=== PATIENT | female | born 1975 | race Caucasian/White ===

== ENCOUNTER 2020-08-11 02:04 | Emergency (ER) | payer BC, SELFPAY ==
--- NOTE | 2020-08-11 01:59 | ECG_ITS ---
APPROVED REPORT Exam: Resting ECG HR:79 bpm ECG Measurements Heart Rate 79 AXES VA 154 P 70 QRSd 84 QRS 62 QT 390 T 44 QTc 447 Conclusion Normal sinus rhythm Possible Left atrial enlargement Nonspecific ST abnormality Abnormal ECG Electronically signed by : Elvis Gil, 08/11/2020 06:56:08
[2020-08-11 02:05] VITALS: BP 161/99; PULSE 73; RESP 16; TEMP 36.9; O2SAT 98; BMI 25.0
--- NOTE | 2020-08-11 02:17 | XR_ITS ---
PROCEDURE: XR CHEST 2V CLINICAL HISTORY: chest pain COMPARISON: No exams were available for comparison FINDINGS: The cardiomediastinal silhouette and pulmonary vascularity are within normal limits. Nodular density overlying both upper lobes medially which may be due to costochondral hypertrophy and may be confirmed with follow-up. No lobar consolidation or collapse. No acute bony abnormalities. IMPRESSION: As above, no acute finding Dictated by: Dick Gardner MD 08/11/2020 05:30 Dick Gardner MD in [facility] 08/11/2020 05:30
[2020-08-11 02:25] LABS: Basophils % 0.5 % (0.1-2.0); Eosinophils # 0.1 K/mm3 (0.0-0.4); Eosinophils % 1.8 % (0.1-12.0); Hematocrit 44.2 % (37.0-47.0); Hemoglobin 14.7 g/dL (12.2-16.2); Lymphocytes # 1.6 K/mm3 (0.7-4.5); Lymphocytes % 32.5 % (10-50); Mean Corpuscular HGB Conc 33.3 g/dL (31.8-35.4); Mean Corpuscular Hemoglobin 29.4 pg (27.0-31.2); Mean Corpuscular Volume 88.3 fl (81-99); Mean Platelet Volume 8.4 fl (7.4-10.4); Monocytes # 0.5 K/mm3 (0.1-1.0); Monocytes % 9.5 % (1.7-9.3); Neutrophils # 2.8 K/mm3 (1.8-7.8); Neutrophils % 55.7 % (37.0-80.0); Platelet Count 226 K/mm3 (142-424); Red Cell Distribution Width 13.3 % (11.5-17.5)
[2020-08-11 02:30] LABS: Chloride 103 mmol/L (98-107)
[2020-08-11 02:31] LABS: Sodium 140 mmol/L (136-145)
[2020-08-11 02:33] LABS: Blood Urea Nitrogen 10 mg/dl (7-17); Creatinine Clearance Estimated 111 mL/min (50-200); Estimated Glomerular Filt Rate 91 ml/min (>60); GFR (African American) 111 ML/MIN (>60); Potassium 3.4 mmoL/L (3.5-5.1)
[2020-08-11 02:34] LABS: Anion Gap 10.4 mEq/L (5-15); Calcium 9.5 mg/dl (8.4-10.2); Carbon Dioxide 30 mmol/L (22.0-30.0); Glucose 113 mg/dl (74-100)
[2020-08-11 02:35] VITALS: BP 120/66; PULSE 72; RESP 15; O2SAT 99
--- NOTE | 2020-08-11 02:54 | CT_ITS ---
PROCEDURE: CT ANGIO CHEST CLINCIAL INDICATION: chest pressure Right-sided chest pain, recent Covid19 COMPARISON: No exams were available for comparison TECHNIQUE: IV Contrast: 70ML Isovue 370 Axial images obtained with sagittal and coronal reformats. All CT scans at the facility use one or more dose reduction, viz: automated exposure control, ma/kV adjustment per patient size (including targeted exams where dose is matched to indication, i.e. head), or iterative reconstruction technique. FINDINGS: HEART AND MEDIASTINAL STRUCTURES: No mediastinal or hilar mass. No evidence of aortic aneurysm or dissection. No pulmonary embolus LUNGS AND PLEURAL SPACES: Old granulomatous disease. Patchy ground-glass infiltrates are present in the right lower lobe posteriorly and to lesser degree in the left lower lobe and right middle lobe BONY STRUCTURES: No acute bony abnormalities apparent. UPPER ABDOMEN: Unremarkable. ADDITIONAL FINDINGS: No other significant abnormalities. IMPRESSION: 1. No evidence of pulmonary embolus. 2. Patchy infiltrate in the lung bases nonspecific but could be seen with Covid19 pneumonia Dictated by: Dick Gardner MD 08/11/2020 06:02 Dick Gardner MD in [facility] 08/11/2020 06:02
[2020-08-11 02:55] LABS: Microscopic, Urine URINE MICROSCOPIC (MICROSCOPIC)
--- NOTE | 2020-08-11 02:56 | [facility].EDCP ---
ED Disposition Clinical Impression: Atypical chest pain Disposition: Home, Self-Care Condition on Discharge: Good Instructions: DI for Atypical Chest Pain Additional Instructions: see pcp for asaf silva Referrals: Elvis Gil MD [Primary Care Provider] - - Critical Care Critical Care Time: No Attestation: On , the high probability of a clinically significant, sudden or life threatening deterioration of the following system(s) required my full and direct attention, intervention and personal management. The time I documented below is in addition to time spent performing reported procedures but includes the following listed in this critical care notation. Medical Decision Making - Medical Records Medical records reviewed: Yes: I reviewed the patient's medical records. - Dann Inquiry Pt receiving controlled substance: No Vital Signs: 08/11/20 02:05 08/11/20 02:35 Temperature 98.4 F Temperature Source Oral Pulse Rate [Left Radial] 73 72 Respiratory Rate 16 15 Blood Pressure [Right Arm] 161/99 H 120/66 Blood Pressure Mean [Right Arm] 119 84 Blood Pressure Source [Right Arm] Automatic Cuff Automatic Cuff Blood Pressure Position [Right Arm] Sitting Sitting 02 Sat by Pulse Oximetry 98 99 Oxygen Delivery Method Room Air Room Air - Lab Data Lab results reviewed: Yes: I reviewed the patient's lab results. Lab Results 08/11/20 02:05: WBC 5.0, RBC 5.00, Hgb 14.7, Hct 44.2, MCV 88.3, MCH 29.4, MCHC 33.3, RDW 13.3, Plt Count 226, MPV 8.4, Neut % (Auto) 55.7, Lymph % (Auto) 32.5, [place] % (Auto) 9.5 H, Eos % (Auto) 1.8, Baso % (Auto) 0.5, Neut # (Auto) 2.8, Lymph # (Auto) 1.6, [place] # (Auto) 0.5, Eos # (Auto) 0.1, Baso # (Auto) 0.0 08/11/20 02:05: Sodium 140, Potassium 3.4 L, Chloride 103, Carbon Dioxide 30, Anion Gap 10.4, BUN 10, Creatinine 0.70, Estimated Creat Clear 111, Estimated GFR 91, Est GFR ( Amer) 111, Glucose 113 H, Calcium 9.5, Troponin I < 0.01 08/11/20 02:07: ESR 23 H 01/12/21 02:07: Total Bilirubin 0.4, Direct Bilirubin 0.3, Conjugated Bilirubin 0.0, Indirect Bilirubin 0.1, Unconjugated Bilirubin 0.1, AST 32, ALT 15, Alkaline Phosphatase 70, C-Reactive Protein 0.9, Total Protein 7.6, Albumin 4.5, Procalcitonin 0.034 08/11/20 02:45: Urine Color Yellow, Urine Appearance Clear, Urine pH 6.0, Ur Specific [place] 1.025, Urine Protein Negative, Urine Glucose (UA) Negative, Urine Ketones Negative, Urine Blood 2+, Urine Nitrate Negative, Urine Bilirubin Negative, Urine Urobilinogen 0.2, Ur Leukocyte Esterase Negative, Urine RBC 5-10, Urine Bacteria 1+ 08/11/20 02:45: Urine HCG, Qual Negative Result diagrams: 08/11/20 02:05 08/11/20 02:05 Orders (Tests/Meds): ED MEDICATIONS Generic Name Dose Route Start Last Admin Trade Name Freq PRN Reason Stop Dose Admin Sodium Chloride 1,000 mls @ 999 mls/hr 08/11/20 02:30 08/11/20 02:28 Sod Chlor 0.9% 1000ml Bag IV 08/11/20 03:30 999 mls/hr .Q1H1M LAITH Administration Discontinued Medications Generic Name Dose Route Start Last Admin Trade Name Freq PRN Reason Stop Dose Admin Aspirin 324 mg 08/11/20 02:18 08/11/20 02:29 Aspirin 81mg Chewable Tablet PO 08/11/20 02:19 324 mg ONCE ONE Administration ORDERS Category Date Time Status CT Chest w/PE protocol [CT angio chest] Stat Cat Scan 08/11/20 02:54 Ordered XR chest 2V Stat Exams 08/11/20 02:17 Ordered Troponin I Q3H Lab 08/11/20 05:30 Ordered Troponin I Q3H Lab 08/11/20 08:30 Ordered - Radiology Data #1 Image(s): Chest Image Reviewed: Yes I reviewed the patient's radiology image Preliminary Findings: Normal/NAD - CT Data CT Scan: Chest Time Received: 03:[address] Reviewed: Yes: I have viewed the radiologist's interpretation Preliminary Findings: Normal/NAD - ECG Data Tracing #1 Normal Sinus Rhythm: Yes Ischemic changes: non-specific ST-T wave changes Chest Pain HPI - General Chief Complaint: Chest Pain Stated Complaint: Chest Pain Maximo
[2020-08-11 03:00] LABS: Appearance,Urine CLEAR (Clear); Bilirubin,Urine Negative (Negative); Blood, Urine 2+ (Negative); Color,Urine YELLOW (Yellow); Glucose,Urine (UA) Negative (Negative); Ketones,Urine Negative (Negative); Leukocyte Esterase,Urine Negative (Negative); Nitrate,Urine Negative (Negative); Protein,Urine Negative (Negative); Specific Gravity, Urine 1.025 (1.005-1.030); Urobilinogen,Urine 0.2 EU/dl (0.2)
[2020-08-11 03:02] LABS: Urine Pregnancy, HCG Qual. Negative (Negative)
[2020-08-11 03:07] LABS: Troponin I < 0.01 ng/ml (0.00-0.034)
[2020-08-11 03:11] LABS: Alanine Aminotransferase 15 U/L (12-78); Albumin Level 4.5 g/dl (3.5-5.0); Alkaline Phosphatase 70 U/L (38-126); Aspartate Amino Transferase 32 U/L (14-36); Bilirubin,Direct 0.3 mg/dl (0.0-0.4); Bilirubin,Indirect 0.1 mg/dL (0.0-0.9); Bilirubin,Total 0.4 mg/dl (0.2-1.3); Bilirubin,Unconjugated 0.1 mg/dL (0.0-1.1); Total Protein,Serum 7.6 g/dl (6.3-8.2)
[2020-08-11 03:13] LABS: Bacteria,Urine 1+ /lpf
[2020-08-11 03:16] LABS: C-Reactive Protein 0.9 mg/L (0-4)
[2020-08-11 03:30] LABS: Erythrocyte Sedimentation Rate 23 mm/hr (0-20); Procalcitonin 0.034 ng/mL (0.0-2.0)
--- NOTE | 2020-08-11 03:37 | PC.NURSE ---
pt back from RAD
[2020-08-11 03:40] VITALS: BP 138/64; PULSE 70; RESP 16; O2SAT 98
[2020-08-11 04:15] VITALS: BP 130/76; PULSE 71; RESP 16; TEMP 36.7; O2SAT 99
== END 2020-08-11 04:17 | disposition home or self-care (01) ==
PROVIDERS: Emergency Provider Emergency Medicine; PCP Internal Medicine Adolescent Medicine
DX: R07.89 Other chest pain (principal); Z86.16 Personal history of COVID-19
CPT/HCPCS: 71046; 71275; 80048; 80076; 81001; 81025; 84145; 84484; 85025; 85651; 86140; 93005; 96365; 96375; 99283; Q9967

== ENCOUNTER → 2023-03-27 23:18 | Outpatient (CLI) | payer BC, SELFPAY ==
[2023-03-27 16:51] LABS: Basophils % 0.5 % (0.1-2.0); Eosinophils # 0.1 K/mm3 (0.0-0.4); Eosinophils % 1.6 % (0.1-12.0); Hemoglobin 14.4 g/dL (12.2-16.2); Lymphocytes # 1.8 K/mm3 (0.7-4.5); Lymphocytes % 29.3 % (10-50); Mean Corpuscular HGB Conc 33.6 g/dL (31.8-35.4); Mean Corpuscular Hemoglobin 30.1 pg (27.0-31.2); Mean Corpuscular Volume 89.4 fl (81-99); Mean Platelet Volume 9.5 fl (7.4-10.4); Monocytes # 0.4 K/mm3 (0.1-1.0); Monocytes % 6.5 % (1.7-9.3); Neutrophils # 3.8 K/mm3 (1.8-7.8); Neutrophils % 62.2 % (37.0-80.0); Platelet Count 265 K/mm3 (142-424); Red Blood Count 4.81 M/mm3 (4.20-5.40); Red Cell Distribution Width 13.2 % (11.5-17.5); White Blood Count 6.1 K/mm3 (4.8-10.8)
[2023-03-27 16:53] LABS: Alanine Aminotransferase 17 U/L (12-78); Albumin Level 4.4 g/dl (3.5-5.0); Albumin/Globulin Ratio 1.6 (1.1-1.8); Alkaline Phosphatase 62 U/L (38-126); Anion Gap 15.8 mEq/L (5-15); Aspartate Amino Transferase 26 U/L (14-36); Bilirubin,Total 0.5 mg/dl (0.2-1.3); Blood Urea Nitrogen 14 mg/dl (7-17); Calcium 9.3 mg/dl (8.4-10.2); Carbon Dioxide 29 mmol/L (22.0-30.0); Chloride 104 mmol/L (98-107); Estimated Glomerular Filt Rate 67 ml/min (>60); GFR (African American) 82 ML/MIN (>60); Globulin 2.8 g/dL (1.3-3.2); Glucose 100 mg/dl (74-100); Potassium 4.8 mmoL/L (3.5-5.1); Sodium 144 mmol/L (136-145); Total Protein,Serum 7.2 g/dl (6.3-8.2)
[2023-03-27 17:24] LABS: Thyroid Stimulating Hormone 2.76 uIU/mL (0.465-4.68)
== END ==
PROVIDERS: PCP Nurse Practitioner Family; Visit Provider Nurse Practitioner Family
DX: R00.2 Palpitations (principal)
CPT/HCPCS: 80053; 84443; 85025; 85378

== ENCOUNTER 2023-09-01 22:11 | Outpatient (CLI) | payer BC, SELFPAY ==
[2023-09-01 16:05] LABS: Basophils % 0.8 % (0.1-2.0); Eosinophils # 0.1 K/mm3 (0.0-0.4); Hematocrit 43.8 % (37.0-47.0); Hemoglobin 14.8 g/dL (12.2-16.2); Lymphocytes # 1.4 K/mm3 (0.7-4.5); Lymphocytes % 27.8 % (10-50); Mean Corpuscular HGB Conc 33.7 g/dL (31.8-35.4); Mean Corpuscular Hemoglobin 30.6 pg (27.0-31.2); Mean Corpuscular Volume 90.7 fl (81-99); Mean Platelet Volume 9.2 fl (7.4-10.4); Monocytes # 0.4 K/mm3 (0.1-1.0); Neutrophils # 3.3 K/mm3 (1.8-7.8); Neutrophils % 63.4 % (37.0-80.0); Platelet Count 237 K/mm3 (142-424); Red Blood Count 4.83 M/mm3 (4.20-5.40); Red Cell Distribution Width 13.3 % (11.5-17.5); White Blood Count 5.2 K/mm3 (4.8-10.8)
[2023-09-01 16:14] LABS: Alanine Aminotransferase 21 U/L (12-78); Albumin Level 4.6 g/dl (3.5-5.0); Albumin/Globulin Ratio 1.9 (1.1-1.8); Alkaline Phosphatase 63 U/L (38-126); Aspartate Amino Transferase 29 U/L (14-36); Bilirubin,Total 0.7 mg/dl (0.2-1.3); Blood Urea Nitrogen 11 mg/dl (7-17); Calcium 9.8 mg/dl (8.4-10.2); Carbon Dioxide 29 mmol/L (22.0-30.0); Chloride 104 mmol/L (98-107); Cholesterol 241 mg/dl (140-200); Estimated Glomerular Filt Rate 77 ml/min (>60); GFR (African American) 93 ML/MIN (>60); Globulin 2.4 g/dL (1.3-3.2); Glucose 88 mg/dl (74-100); HDL Cholesterol 48 mg/dl (40-60); Sodium 140 mmol/L (136-145); Triglycerides 98 mg/dl (30-150); VLDL Cholesterol 20 mg/dL (0-40)
[2023-09-01 16:26] LABS: Direct LDL Cholesterol 134.89 mg/dL (100-129); Hemoglobin A1C 5.3 % (4.0-6.0)
[2023-09-01 16:33] LABS: Free T4 (Free Thyroxine) 1.04 ng/dl (0.78-2.19); T4 (Thyroxine) 7.6 ug/dl (5.53-11.0); Triiodothryronine (T3) Uptake 32 % (23.5-40.5)
[2023-09-01 16:46] LABS: Thyroid Stimulating Hormone 1.82 uIU/mL (0.465-4.68)
[2023-09-01 17:05] LABS: Vitamin B12 197 pg/mL (239-931)
== END 2023-09-01 23:59 ==
LOC: LAB.DROPOF 22:12
PROVIDERS: PCP Nurse Practitioner Family; Visit Provider Nurse Practitioner Family
DX: R53.83 Other fatigue (principal); E53.8 Deficiency of other specified B group vitamins; E55.9 Vitamin D deficiency, unspecified; M25.511 Pain in right shoulder; R00.2 Palpitations; Z79.899 Other long term (current) drug therapy
CPT/HCPCS: 80053; 80061; 82306; 82607; 83036; 84436; 84439; 84443; 84479; 85025